=== PATIENT | male | born 1945 | race Caucasian/White ===

== ENCOUNTER → 2018-09-21 07:32 | Outpatient (CLI) | payer MEDICARE, OTHER, SELFPAY ==
[2018-09-21 11:08] LABS: ALB/GLOB Ratio 1.2 RATIO (0.9-2.4); AST(SGOT) 25 U/L (15-37); Alanine Aminotransfer ALT/SGPT 41 U/L (16-61); Albumin, Serum 3.6 g/dL (3.2-5.0); Alkaline Phosphatase 89 U/L (45-117); Anion Gap 8 (5-15); BUN 17 mg/dL (7-18); BUN/Creat Ratio 17.2 RATIO (10-20); Calcium,Total 8.3 mg/dL (8.5-10.1); Chloride 108 mmol/L (98-107); Cholesterol 152 mg/dL (200); Creatinine, Serum 0.99 mg/dL (0.70-1.30); EST Glomerular Filtration Rate 79 mL/min (>60); Est Glom Filt Rate - Afr Amer 96 mL/min (>60); Globulin 3.1 g/dL (2.2-4.2); Glucose 91 mg/dL (74-106); High Density Lipoprotein 45 mg/dL; PSA,Total- Diagnostic 0.99 ng/mL (0.0-4.0); Potassium 4.1 mmol/L (3.5-5.1); Protein, Total 6.7 g/dL (6.4-8.2); Sodium Level 143 mmol/L (136-145); Triglycerides 98 mg/dL; Very Low Density Lipoprotein 20 mg/dL (5-40)
== END ==
PROVIDERS: Family Provider Family Medicine; PCP Family Medicine; Referring Provider Family Medicine; Visit Provider Family Medicine
DX: E78.5 Hyperlipidemia, unspecified (principal); N40.1 Benign prostatic hyperplasia with lower urinary tract symptoms
CPT/HCPCS: 36415; 80053; 80061; 84153

== ENCOUNTER → 2019-09-30 07:29 | Outpatient (CLI) | payer MEDICARE, OTHER, SELFPAY ==
[2019-09-30 10:24] LABS: ALB/GLOB Ratio 1.3 RATIO (0.9-2.4); AST(SGOT) 23 U/L (15-37); Alanine Aminotransfer ALT/SGPT 39 U/L (16-61); Albumin, Serum 3.8 g/dL (3.2-5.0); Alkaline Phosphatase 108 U/L (45-117); Anion Gap 7 (5-15); BUN 19 mg/dL (7-18); BUN/Creat Ratio 19.1 RATIO (10-20); Calcium,Total 8.6 mg/dL (8.5-10.1); Chloride 108 mmol/L (98-107); Cholesterol 157 mg/dL (200); EST Glomerular Filtration Rate 79 mL/min (>60); Est Glom Filt Rate - Afr Amer 95 mL/min (>60); Glucose 91 mg/dL (74-106); High Density Lipoprotein 43 mg/dL; PSA,Total - Annual Screen 0.83 ng/mL (0.00-4.00); Potassium 3.9 mmol/L (3.5-5.1); Protein, Total 6.8 g/dL (6.4-8.2); Sodium Level 141 mmol/L (136-145); Triglycerides 126 mg/dL; Very Low Density Lipoprotein 25 mg/dL (5-40)
== END ==
PROVIDERS: Family Provider Family Medicine; PCP Family Medicine; Referring Provider Family Medicine; Visit Provider Family Medicine
DX: Z00.00 Encounter for general adult medical examination without abnormal findings (principal); R97.20 Elevated prostate specific antigen [PSA]; E78.5 Hyperlipidemia, unspecified
CPT/HCPCS: 36415; 80053; 80061; 84153; G0103

== ENCOUNTER → 2020-10-05 07:27 | Outpatient (CLI) | payer MEDICARE, OTHER, SELFPAY ==
[2020-10-05 10:39] LABS: ALB/GLOB Ratio 1.2 RATIO (0.9-2.4); AST(SGOT) 23 U/L (15-37); Alanine Aminotransfer ALT/SGPT 37 U/L (16-61); Albumin, Serum 3.8 g/dL (3.2-5.0); Alkaline Phosphatase 97 U/L (45-117); Anion Gap 3 (5-15); BUN 22 mg/dL (7-18); BUN/Creat Ratio 17.6 RATIO (10-20); Calcium,Total 8.7 mg/dL (8.5-10.1); Chloride 109 mmol/L (98-107); Cholesterol 141 mg/dL (200); Creatinine, Serum 1.25 mg/dL (0.70-1.30); EST Glomerular Filtration Rate 60 mL/min (>60); Est Glom Filt Rate - Afr Amer 73 mL/min (>60); Globulin 3.2 g/dL (2.2-4.2); Glucose 102 mg/dL (74-106); High Density Lipoprotein 44 mg/dL; PSA,Total - Annual Screen 1.07 ng/mL (0.00-4.00); Potassium 4.1 mmol/L (3.5-5.1); Sodium Level 141 mmol/L (136-145); Triglycerides 143 mg/dL; Very Low Density Lipoprotein 29 mg/dL (5-40)
== END ==
PROVIDERS: PCP Family Medicine; Referring Provider Family Medicine; Visit Provider Family Medicine
DX: Z00.00 Encounter for general adult medical examination without abnormal findings (principal); E78.5 Hyperlipidemia, unspecified; N40.1 Benign prostatic hyperplasia with lower urinary tract symptoms
CPT/HCPCS: 36415; 80053; 80061; 84153; G0103

== ENCOUNTER 2020-12-06 10:29 | Day surgery (SDC) | payer MEDICARE, OTHER, SELFPAY ==
--- NOTE | 2020-11-29 08:52 | EKG12_ITS ---
Test Reason : PREOP Blood Pressure : / mmHG Vent. Rate : 076 BPM Atrial Rate : 076 BPM P-R Int : 158 ms QRS Dur : 128 ms QT Int : 382 ms P-R-T Axes : 014 -32 084 degrees QTc Int : 429 ms Normal sinus rhythm Left axis deviation Left bundle branch block Abnormal ECG Confirmed by MAGGI CANDELARIA, JAIMIE ([id number]), mapping editor GUZMAN ALEXANDER ([id number]) on 11/29/2020 12:59:27 PM Referred By: Gustavo Dhillon Confirmed By:JAIMIE TAY MD
[2020-11-29 09:30] LABS: Hematocrit 44.8 % (40-54); Hemoglobin 14.8 g/dL (13.0-16.5); Mean Corpuscular Hgb 30.8 pg (27.0-32.0); Mean Corpuscular Volume 93.3 fL (80-94); Mean Platelet Vol. 9.6 fl (6.2-12.0); Platelet Count 239 K/mm3 (150-450); RBC Distribution Width CV 13.3 % (11.6-14.6); RBC Distribution Width SD 45.4 fl (35.1-43.9)
[2020-12-06] VITALS (11 sets, daily range): BP systolic 111–149; BP diastolic 65–81; PULSE 68–90; RESP 16–18; TEMP 36.1–37.3; O2SAT 94–100; BMI 26.1
--- NOTE | 2020-12-06 | PROS_PTH ---
PATIENT: RAIMUNDO HUANG LOC: [facility] [place] U#:[id number] AGE/SX: 75/M ROOM: RE12/06/[address]: Dr. Gustavo Dhillon MD : 1945 BED: DIS: 12/07/2020 SPEC #: [id number] RECD: 12/06/20 14:00 STATUS: FRANK LEIJA #: [id number] BILLIE: 12/06/20 00:[address]: Gustavo Dhillon DEPT: SURGICAL PATHOLOGY RECD BY: Ibrahima Ward ENTERED: 12/07/20 07:42 SP TYPE: TURP OTHR DR: Dr. Saad Pabon MD Tissues: Prostate, NOS Procedures: Surgery Specimen Level IV HEADER OPERATION: Cysto, TUR prostate, Olympus PRE-OP DIAGNOSIS: BPH, urgency of urination, nocturia TISSUE SUBMITTED: Prostate pieces MICROSCOPIC DIAGNOSIS Prostate chips, TUR: Benign prostatic hyperplasia, glandular and stromal type. Focal mild chronic inflammation. SJ:mouna 12/08/2020 MICROSCOPIC DESCRIPTION Slides are reviewed. GROSS DESCRIPTION Received is one container labeled with the patient's name and designated prostate tissue. The specimen consists of multiple irregular fragments of pink-servin, rubbery, soft tissue that in aggregate weigh 10 gm and measure in aggregate 6 x 6 x 0.7 cm. The entire specimen is submitted in six cassettes. / AM:mouna 12/07/2020 TC:5 CPT: 63953
[2020-12-06] MEDS: Lactated Ringers 1,000 ML 100 ML IV (11:06)
--- NOTE | 2020-12-06 12:57 | PCM.HP.STD ---
Problem List (1) BPH with obstruction/lower urinary tract symptoms Status: Acute History of Present Illness Date of Admission: 12/06/20 Chief Complaint: BPH with obstruction The patient is a 75 year old male with BPH and obstruction plan to proceed the transurethral section of the prostate Past Medical History Allergies No Known Allergies Allergy (Verified 11/28/20 12:35) Home Medications: Ambulatory Orders Medication Instructions Recorded Atorvastatin Calcium 20 mg PO QHS 11/28/20 Cholecalciferol (Vitamin D3) 2,000 unit PO DAILY 11/28/20 [Vitamin D3] Elderberry Fruit and Flower [Black 1 ea PO DAILY 11/28/20 Elderberry 575 mg Cap] Finasteride [Proscar] 5 mg PO DAILY 11/28/20 Multivitamin 1 ea PO DAILY 11/28/20 Tamsulosin HCl [Flomax] 0.4 mg PO DAILY 11/28/20 Surgical History: no surgical history Smoking Status: Former smoker Tobacco Use: Non-smoker Review of Systems Constitutional: Denies: Chills, Fever, Weight Change HEENT: Denies: Head Aches, Sinus Congestion, Sinus Drainage Cardiovascular: Denies: Chest Pain, Palpitations Respiratory: Denies: Cough, Shortness of breath at rest, Sputum production Gastrointestinal: Denies: Abdominal Pain, Nausea, Vomiting Genitourinary: Denies: Dysuria Musculoskeletal: Denies: Joint Pain, Joint Tenderness Skin: Denies: Rash, Wounds Neurological: Denies: Numbness, Tingling, Focal weakness Psychiatric: Denies: Anxiety, Depression, Homicidal Ideations, Suicidal Ideations Hematologic/ Lymphatic: Denies: Easy Bruising, Easy Bleeding VTE Information - Inpt Only VTE Present on Admission: No - Physical Exam Vitals/I&O's: Vital Signs Temp Pulse Resp BP Pulse Ox 97.8 F 90 16 128/65 H 99 12/06/20 10:59 12/06/20 10:59 12/06/20 10:59 12/06/20 10:59 12/06/20 10:59 Oxygen Delivery Method Room Air Weight: 80.3 kg Body Mass Index (BMI) 26.1 General: Alert, Oriented x3, Cooperative HEENT: Atraumatic, PERRLA, EOMI, Normocephalic Neck: Supple, No JVD, Negative Carotid Bruits Lungs: Clear to auscultation, Normal air movement Cardiovascular: Regular rate, No murmurs Abdomen: Bowel Sounds Present, Soft, Non Tender Extremities: No edema, Capillary Refill Less than 3 Seconds Skin: No rashes, No breakdown Musculoskeletal: No Tenderness to Palpation of Joints or Extremities Neurological: Cranial nerves II-XII grossly intact Psych/Mental Status: Normal Affect, Appropriate Microbiology Past 72 Hours 12/05/20 09:10 Interface Orders SARS-CoV-2 Antigen (Rapid) - Final Current Medications Cefazolin Sodium 2 gm/ Sodium (Chloride) 110 mls @ 150 mls/hr IV PREOP ONE Stop: 12/06/20 13:08 Lactated Ringer's () 1,000 mls @ 100 mls/hr IV .Q10H JOSETTE Last Admin: 12/06/20 11:06 Dose: 100 mls/hr Documented by: Assessment/Plan All Active Problems BPH with obstruction/lower urinary tract symptoms (Acute) Plan to proceed with transurethral section of the prostate
--- NOTE | 2020-12-06 13:02 | DCINST_ITS ---
Discharge Diet: Light diet - advance as tolerated Discharge Activity: May Not Drive, May not drive while taking narcotic pain medications. Call your doctor if your incision/area has: Continuous Slow Oozing, Sudden Increased Bleeding, Increased Pain/ Swelling, Increased Redness, Foul Smelling Discharge, Swelling at the incision site Suture Line Care: Avoid Pulling/Pushing, Avoid Pinching/Bending Instructions: Transurethral Resection of the Prostate (TURP): Home Recovery Allergies/Adverse Reactions: Allergies No Known Allergies Allergy (Verified 11/28/20 12:35) Medications to take at Discharge Atorvastatin Calcium 20 mg PO QHS 11/28/20 Cholecalciferol (Vitamin D3) [Vitamin D3] 2,000 unit PO DAILY 11/28/20 Elderberry Fruit and Flower [Black Elderberry 575 mg Cap] 1 ea PO DAILY 11/28/20 Finasteride [Proscar] 5 mg PO DAILY 11/28/20 Multivitamin 1 ea PO DAILY 11/28/20 Tamsulosin HCl [Flomax] 0.4 mg PO DAILY 11/28/20 Ciprofloxacin [Cipro] 500 mg PO BID #14 tab 12/06/20 Docusate Sodium [Colace] 100 mg PO BID #20 cap 12/06/20 Hydrocodone/Acetaminophen [Marion 5-325 Tablet] 1 ea PO Q4H PRN PRN 10 Days #14 tab 12/06/20 The following prescriptions were given: Ciprofloxacin [Cipro] 500 mg PO BID #14 tab Transmission Status: Pending to [id number] Docusate Sodium [Colace] 100 mg PO BID #20 cap Transmission Status: Pending to [id number] Hydrocodone/Acetaminophen [Marion 5-325 Tablet] 1 ea PO Q4H PRN PRN 10 Days #14 tab PRN Reason: Pain 1-10 Or Fever Prescription Printed Primary Care Physician: Edil Pabon MD [Primary Care Provider] - Test Results: Test results from this visit will be discussed in further detail at your follow- up appointment, if applicable. Please Follow Up With: Gustavo Dhillon MD When: in 2 weeks, please call to make an appointment. Proposed Discharge Date: 12/07/20
[2020-12-06] MEDS: Cefazolin 2 GM in 0.9% Normal Saline 100 ML IV (13:18)
--- NOTE | 2020-12-06 13:42 | PCM.OPRPT ---
Problem List (1) BPH with obstruction/lower urinary tract symptoms Status: Acute Report of Operation Date of Procedure: 12/06/20 Pre-Operative Diagnosis: BPH with obstruction Post-Operative Diagnosis: Same Surgery/Procedure Performed:: Transurethral section of prostate Description of Surgical Findings:: In the preoperative setting I discussed with the patient how the surgery would be done with expect afterwards. We discussed how a prostate resection is done and we discussed the risk of the surgery including, bleeding, infection, retrograde ejaculation, changes with ejaculation or intercourse,. We discussed the possibility that the resection of the prostate may not alleviate his urinary symptoms. We discussed the small risk of developing scar tissue along the urethral channel and strictures. We also discussed the chance of the prostate could grow back and he may need further surgery or treatment in the future for prostate problems. Patient was taken back to the operating room, timeout procedure was performed, he was identified and marked and placed on the operating room table. He underwent general anesthesia. He was placed in dorsolithotomy position. Penis and testicles were prepped and draped in usual sterile fashion. Went into the bladder using the visual obturator with a resectoscope. Once inside the bladder identified the right and left ureteral orifice. I then identified the prostate and the anatomy of the prostate. I marked out the area of the sphincter and the verumontanum was identified. I then proceeded with the prostate resection first resected the median lobe. And then resected the right lobe of the prostate. Then to resect the left lobe of the prostate. I then resected the apical tissue of the prostate. Made sure that there was no injury to the sphincter or the verumontanum was still intact. At the end of the resection all the chips were Ellik out of the bladder. I then identified the left and right ureteral orifice and these were confirmed to be in good position and effluxing and not injured. The resectoscope was removed, a 22 [place] catheter was placed into the bladder on continuous irrigation. And the urine was fairly light pink color and draining normally. He was taken back to the PACU in good condition. Type of Anesthesia:: General Drains: 3 way huizar - Admit VTE Documentation VTE Present on Admission: No VTE Mechan Device Prophylaxis: SCD's
[2020-12-06] MEDS: 0.9% Normal Saline 1,000 ML 125 ML IV (16:50)
[2020-12-06] MEDS: Acetaminophen 325 MG Tablet PO (18:44)
[2020-12-06] MEDS: Ibuprofen 600 MG Tablet PO (19:46)
[2020-12-06] MEDS: Atorvastatin Calcium 20 MG Tablet PO (22:15)
[2020-12-06] MEDS: Docusate Sodium 100 MG Capsule PO (22:15)
[2020-12-07 02:00] VITALS: BP 135/74; PULSE 81; RESP 16; TEMP 36.7; O2SAT 93
[2020-12-07] MEDS: 0.9% Normal Saline 1,000 ML 125 ML IV (03:50)
[2020-12-07] MEDS: Pantoprazole Sodium 40 MG Tablet PO (07:58)
[2020-12-07] MEDS: Docusate Sodium 100 MG Capsule PO (07:58)
[2020-12-07] MEDS: Tamsulosin HCl 0.4 MG Capsule PO (07:58)
[2020-12-07 08:00] VITALS: BP 138/78; PULSE 84; RESP 16; TEMP 36.9; O2SAT 97
== END 2020-12-07 10:25 | disposition home or self-care (01) ==
LOC: SDC 10:29 → AC 10:31 → MS3 15:44
PROVIDERS: Anesthesiology; PCP Family Medicine; Referring Provider Urology; Visit Provider Urology
PROC: (CPT 52601; principal; 2020-12-06 12:40)
DX: N40.1 Benign prostatic hyperplasia with lower urinary tract symptoms (principal); N41.1 Chronic prostatitis; N13.8 Other obstructive and reflux uropathy; R39.15 Urgency of urination; R35.1 Nocturia; N32.89 Other specified disorders of bladder; Z20.828 Contact with and (suspected) exposure to other viral communicable diseases; E78.00 Pure hypercholesterolemia, unspecified; Z79.899 Other long term (current) drug therapy; Z87.891 Personal history of nicotine dependence
CPT/HCPCS: 52601; 36415; 85027; 87426; 88305; 93005; C9803; J7030; J7120; J2405

== ENCOUNTER → 2020-12-18 10:48 | Outpatient (CLI) | payer MEDICARE, OTHER, SELFPAY ==
[2020-12-06 16:01] VITALS: BMI 26.1
== END ==
PROVIDERS: PCP Family Medicine; Referring Provider Nurse Practitioner Adult Health; Visit Provider Nurse Practitioner Adult Health
DX: R30.0 Dysuria (principal)
CPT/HCPCS: 87086; 87088

== ENCOUNTER → 2021-09-24 07:43 | Outpatient (CLI) | payer MEDICARE, OTHER, SELFPAY ==
[2021-09-24 10:39] LABS: ALB/GLOB Ratio 1.1 RATIO (0.9-2.4); AST(SGOT) 24 U/L (15-37); Alanine Aminotransfer ALT/SGPT 36 U/L (16-61); Albumin, Serum 3.5 g/dL (3.2-5.0); Alkaline Phosphatase 108 U/L (45-117); Anion Gap 6 (5-15); BUN 23 mg/dL (7-18); BUN/Creat Ratio 22.1 RATIO (10-20); Calcium,Total 8.7 mg/dL (8.5-10.1); Chloride 107 mmol/L (98-107); Cholesterol 160 mg/dL (200); Creatinine, Serum 1.04 mg/dL (0.70-1.30); EST Glomerular Filtration Rate 74 mL/min (>60); Est Glom Filt Rate - Afr Amer 90 mL/min (>60); Globulin 3.2 g/dL (2.2-4.2); Glucose 96 mg/dL (74-106); High Density Lipoprotein 42 mg/dL; Potassium 4.2 mmol/L (3.5-5.1); Protein, Total 6.7 g/dL (6.4-8.2); Sodium Level 141 mmol/L (136-145); Triglycerides 177 mg/dL; Very Low Density Lipoprotein 35 mg/dL (5-40)
== END ==
PROVIDERS: PCP Family Medicine; Referring Provider Family Medicine; Visit Provider Family Medicine
DX: E78.5 Hyperlipidemia, unspecified (principal)
CPT/HCPCS: 36415; 80053; 80061

== ENCOUNTER → 2021-10-08 07:48 | Outpatient (CLI) | payer MEDICARE, OTHER, SELFPAY ==
[2021-10-08 10:12] LABS: PSA,Total - Annual Screen 1.56 ng/mL (0.00-4.00)
== END ==
PROVIDERS: PCP Family Medicine; Referring Provider Family Medicine; Visit Provider Family Medicine
DX: Z12.5 Encounter for screening for malignant neoplasm of prostate (principal); E78.5 Hyperlipidemia, unspecified
CPT/HCPCS: 36415; 84153; G0103

== ENCOUNTER → 2022-09-27 | Outpatient (CLI) | payer MEDICARE, OTHER, SELFPAY ==
[2022-09-27 10:06] LABS: ALB/GLOB Ratio 1.1 RATIO (0.9-2.4); AST(SGOT) 18 U/L (15-37); Alanine Aminotransfer ALT/SGPT 34 U/L (16-61); Albumin, Serum 3.6 g/dL (3.2-5.0); Alkaline Phosphatase 105 U/L (45-117); Anion Gap 6 (5-15); BUN 19 mg/dL (7-18); BUN/Creat Ratio 17.4 RATIO (10-20); CPK Total, Creatine Kinase 84 U/L (39-308); Calcium,Total 8.9 mg/dL (8.5-10.1); Chloride 108 mmol/L (98-107); Cholesterol 133 mg/dL (200); Creatinine, Serum 1.09 mg/dL (0.70-1.30); EST Glomerular Filtration Rate 70 mL/min (>60); Est Glom Filt Rate - Afr Amer 85 mL/min (>60); Globulin 3.2 g/dL (2.2-4.2); Glucose 98 mg/dL (74-106); High Density Lipoprotein 36 mg/dL; PSA,Total- Diagnostic 5.75 ng/mL (0.0-4.0); Potassium 4.2 mmol/L (3.5-5.1); Protein, Total 6.8 g/dL (6.4-8.2); Sodium Level 140 mmol/L (136-145); Triglycerides 155 mg/dL; Very Low Density Lipoprotein 31 mg/dL (5-40)
== END | disposition home or self-care (01) ==
LOC: MTLAB 08:06
PROVIDERS: PCP Family Medicine; Referring Provider Family Medicine; Visit Provider Family Medicine
DX: E78.5 Hyperlipidemia, unspecified (principal)
CPT/HCPCS: 36415; 80053; 80061; 82550; 84153

== ENCOUNTER → 2023-04-04 | Outpatient (CLI) | payer MEDICARE, OTHER, SELFPAY ==
[2023-04-04 10:34] LABS: Cholesterol 151 mg/dL (200); High Density Lipoprotein 41 mg/dL; Triglycerides 108 mg/dL; Very Low Density Lipoprotein 22 mg/dL (5-40)
== END | disposition home or self-care (01) ==
LOC: MTLAB 08:11
PROVIDERS: PCP Family Medicine; Referring Provider Family Medicine; Visit Provider Family Medicine
DX: E78.5 Hyperlipidemia, unspecified (principal)
CPT/HCPCS: 36415; 80061

== ENCOUNTER → 2023-04-15 | Outpatient (CLI) | payer MEDICARE, OTHER, SELFPAY ==
[2023-04-15 12:34] LABS: Erythrocyte Sedimentation Rate 3 mm/hr (0-20)
[2023-04-15 12:37] LABS: Hematocrit 44.2 % (40-54); Hemoglobin 14.5 g/dL (13.0-16.5); Mean Corp Hgb Conc 32.8 g/dL (32-36); Mean Corpuscular Hgb 30.5 pg (27.0-32.0); Mean Corpuscular Volume 92.9 fL (80-94); Mean Platelet Vol. 9.9 fl (6.2-12.0); Platelet Count 251 K/mm3 (150-450); RBC Distribution Width SD 44.3 fl (35.1-43.9); Red Blood Count 4.76 M/mm3 (4.6-6.2); White Blood Count 7.8 K/mm3 (4.4-11.0)
[2023-04-15 13:20] LABS: ALB/GLOB Ratio 1.3 RATIO (0.9-2.4); AST(SGOT) 22 U/L (15-37); Alanine Aminotransfer ALT/SGPT 30 U/L (16-61); Albumin, Serum 3.8 g/dL (3.2-5.0); Alkaline Phosphatase 91 U/L (45-117); Anion Gap 6 (5-15); BUN 21 mg/dL (7-18); BUN/Creat Ratio 22.5 RATIO (10-20); Chloride 109 mmol/L (98-107); Creatinine, Serum 0.93 mg/dL (0.70-1.30); EST Glomerular Filtration Rate 84 mL/min (>60); Est Glom Filt Rate - Afr Amer 102 mL/min (>60); Glucose 86 mg/dL (74-106); Potassium 4.5 mmol/L (3.5-5.1); Protein, Total 6.8 g/dL (6.4-8.2); Sodium Level 141 mmol/L (136-145)
[2023-04-15 13:58] LABS: Vitamin B12 634 pg/mL (211-911); Vitamin D,25 Hydroxy 59.7 ng/mL
== END | disposition home or self-care (01) ==
PROVIDERS: PCP Family Medicine; Visit Provider Family Medicine
DX: R45.86 Emotional lability (principal); R97.20 Elevated prostate specific antigen [PSA]
CPT/HCPCS: 36415; 80053; 82306; 82607; 84443; 85027; 85652

== ENCOUNTER → 2023-05-07 | Outpatient (CLI) | payer MEDICARE, OTHER, SELFPAY ==
--- NOTE | 2023-05-07 13:16 | MRI_ITS ---
EXAM: MR HEAD WITHOUT INTRAVENOUS CONTRAST CLINICAL INDICATION: memory change, paranoia TECHNIQUE: Multiplanar and multisequence MR images of the brain were obtained without intravenous contrast. COMPARISON: No relevant prior studies available. FINDINGS: BRAIN AND EXTRA-AXIAL SPACES: No restricted diffusion. No evidence of acute CVA. Moderate cerebral volume loss. Mild hydrocephalus ex vacuo. Minimal deep periventricular signal changes near the occipital horns on inversion recovery images. No intra- or extra-axial hemorrhage. No evidence of acute infarct. No intracranial mass or mass effect. There is preservation of the diaz/white matter interface. Posterior fossa structures are unremarkable. Basal cisterns are patent. SELLA: Unremarkable. Normal sella turcica, pituitary gland, infundibular stalk, optic chiasm and hypothalamus. AUDITORY SYSTEM: Unremarkable. The internal auditory canals are patent. BONES/JOINTS: Unremarkable. No discrete lytic or blastic abnormalities. SINUSES: Mucous retention cyst in the left maxillary sinus. Otherwise unremarkable sinuses. MASTOID AIR CELLS: Unremarkable as visualized. Clear. ORBITS: Unremarkable as visualized. Both globes, extraocular muscles, optic nerves and retrobulbar fat appear unremarkable. VASCULATURE: The major proximal [place] vessels appear unremarkable. The dural venous sinus signal voids are unremarkable. MRI/Brain without Contrast IMPRESSION: Moderate volume loss, subjectively advanced for age. No acute intracranial abnormality. Electronically Signed: Emily Ortiz MD at 8:35 EDT ,
== END | disposition home or self-care (01) ==
LOC: MRI 13:04
PROVIDERS: PCP Family Medicine; Referring Provider Family Medicine; Visit Provider Family Medicine
DX: G31.84 Mild cognitive impairment of uncertain or unknown etiology (principal)
CPT/HCPCS: 70551

== ENCOUNTER → 2024-04-27 | Outpatient (CLI) | payer MEDICARE, OTHER, SELFPAY ==
[2024-04-27 11:41] LABS: PSA,Total - Annual Screen 2.16 ng/mL (0.00-4.00)
== END | disposition home or self-care (01) ==
LOC: LAB 09:37
PROVIDERS: PCP Family Medicine; Referring Provider Urology; Visit Provider Urology
DX: Z12.5 Encounter for screening for malignant neoplasm of prostate (principal)
CPT/HCPCS: 36415; 84153; G0103

== ENCOUNTER → 2024-12-07 | Outpatient (CLI) | payer MEDICARE, OTHER, SELFPAY ==
[2024-12-07 13:52] LABS: Bacteria 0 SEEN /hpf (None Seen)
[2024-12-07 16:03] LABS: Color, Urine Straw (Yellow); Glucose, Dipstick Normal (Normal); Ketone-Dipstick 5 mg/dl (Negative); Leukocyte Esterase-Dipstick 25 /ul (Negative); Nitrite-Dipstick Negative (Negative); Occult Blood-Urine Negative /ul (Negative); Protein-Dipstick 15 mg/dl (Negative); Urine Bilirubin Dipstick Negative (Negative); Urine Clarity Clear (Clear); Urine Urobilinogen Normal (Normal)
[2024-12-07 16:52] LABS: Squamous Epithelial Cells - UA 0-5 SEEN /hpf (0-5)
[2024-12-07 16:53] LABS: Mucous, Urine 2+ /hpf (<or=2+); Red Blood Cells-Urine 0-5 SEEN /hpf (0-5); White Blood Cells 5-10 SEEN /hpf (0-5)
== END | disposition home or self-care (01) ==
LOC: LABSPEC 13:51
PROVIDERS: PCP Family Medicine; Referring Provider Family Medicine; Visit Provider Family Medicine
DX: R35.0 Frequency of micturition (principal)
CPT/HCPCS: 81001; 87086; 87088

== ENCOUNTER 2025-01-08 21:02 | Emergency (ER) | payer MEDICARE, OTHER, SELFPAY ==
[2025-01-08 21:04] VITALS: BP 125/78; PULSE 96; RESP 15; TEMP 36.2; O2SAT 97
--- NOTE | 2025-01-08 21:45 | EKG12_ITS ---
Test Reason : DYSRHYTHMIA Blood Pressure : */* mmHG Vent. Rate : 84 BPM Atrial Rate : 84 BPM P-R Int : 156 ms QRS Dur : 128 ms QT Int : 380 ms P-R-T Axes : 39 -15 116 degrees QTcB Int : 449 ms Normal sinus rhythm Left bundle branch block Abnormal ECG Confirmed by JAIMIE TAY MD ([id number]), field map editor VIOLETA MOMIN ([id number]) on 01/10/2025 6:34:12 AM Referred By: LEATHA Confirmed By: JAIMIE TAY MD
--- NOTE | 2025-01-08 21:55 | EX.ED.DYSGE1 ---
HPI History of Present Illness Chief Complaint: General Illness Detail of Chief Complaint: Near syncope/syncope Informant: patient and spouse/S.O. Onset/Context/Timing Onset: Hours Context: Sudden Onset Timing: Intermittent Quality: Patient was pale, diaphoretic and partially off the commode against the wal Location: At home Current Severity: Gone Maximum Severity: Moderate Worsened by: Uncertain since patient has dementia Relieved by: Not applicable Associated Symptoms Associated Symptoms: Patient was leaning to the left off the commode was diaphoretic, pale and d Narrative Narrative: Patient was put to bed by his at 1830. She heard commotion. She went to go check on him. He was leaning off the commode against the wall. He was pale diaphoretic not appropriate. He was breathing but his breathing was abnormal. He did not have a bowel movement. He did have difficulty urinating. states she has had difficulty urinating for the past month. There is no other symptoms. Prior similar symptoms: No Recent Illness/Hospitalization: No PFSH [facility] Home Medications ?Medication ?Instructions ?Recorded ?Last Taken ?Type atorvastatin 20 mg tablet 20 mg PO QHS 11/28/20 Unknown History cholecalciferol (vitamin D3) 50 2,000 unit PO DAILY 11/28/20 Unknown History mcg (2,000 unit) capsule elderberry fruit 460 mg-elderberry 1 ea PO DAILY 11/28/20 Unknown History flower 115 mg capsule finasteride 5 mg tablet 5 mg PO DAILY 11/28/20 Unknown History multivitamin 1 ea PO DAILY 11/28/20 Unknown History tamsulosin 0.4 mg capsule 0.4 mg PO DAILY 11/28/20 Unknown History ciprofloxacin HCl 500 mg tablet 500 mg PO BID #14 tabs 12/06/20 Unknown Rx docusate sodium 100 mg capsule 100 mg PO BID #20 caps 12/06/20 Unknown Rx Allergy/AdvReac Type Severity Reaction Status Date / Time No Known Allergies Allergy Verified 01/08/25 21:04 Social History (Updated 01/08/25 @ 21:[address] Andrea Moreno MD) household members: spouse Smoking Status: Former smoker ROS ROS ED Review of Systems ROS Unobtainable: due to mental status Cardiovascular Cardiovascular: Reports chest pain and palpitations Gastrointestinal Gastrointestinal: Denies abdominal pain, diarrhea or vomiting EXAM Physical Exam Const Vital Signs: 01/08/25 21:04 01/08/25 22:03 Temperature 97.2 F L Temperature Source Temporal Pulse Rate 96 Respiratory Rate 15 Respiratory Effort Normal Non-Labored Respiratory Pattern Normal Blood Pressure 125/78 H Blood Pressure Mean 93 Pulse Ox 97 Oxygen Delivery Method Room Air Positive well nourished and well developed General Appearance ED: well developed and NAD HEENT Reports moist mucous membranes Eyes PERRL and EOMs intact bilaterally General Eye ED: Negative for pale conjunctiva or scleral icterus Chest Wall inspection of chest normal and palpation of chest normal Resp normal respiratory effort and clear to auscultation bilaterally Cardio regular rate, regular rhythm, S1 normal heart sound, S2 normal heart sound and no murmurs GI normal to inspection, nondistended, normoactive bowel sounds, non-tender, non-distended and hepatosplenomegaly Extremity normal to inspection General Extremety ED: Negative for edema General Extremity: Negative for edema Neuro No oriented x3, CN's II-XII intact bilaterally and no sensory deficits noted Sensorium / Orientation: alert Motor Exam: strength 5/5 throughout Psych mental status grossly normal Skin no rashes or lesions noted, no wounds and skin turgor normal MDM MDM MDM Narrative Medical decision making narrative: EKG was obtained to assess for acute ischemia. Differential is vasovagal near syncope rule out cardiac ischemia. EKG will be obtained. EKG does not show any ischemia be discharged to home. The is the primary informant. History & Record Review Additional record(s) reviewed:: Prior outpatient record (Records from outside facility December 2020 for obstruction lower urinary tract system/frequency of micturition. Also history and physical by Dr. Kessler for BPH with obstruction of lower tract.) EKG Initial EKG: Attestation: I personally reviewed and interpreted this EKG as follows: Interpretation: Sinus Rhythm (Rate is 84. There is left bundle branch block. WA interval is 156 ms. QRS duration 128 ms. QT duration 180 ms. There is no acute ischemic changes.) Discharge Plan Triage Chief Complaint: General Illness ED Provider: Andrea Moreno Dx/Rx/DC Orders Clinical Impression: Vasovagal near syncope, BPH with obstruction/lower urinary tract symptoms, Dementia Instructions: ED Near-Fainting- Vagal Reaction Prescriptions: No Action multivitamin 1 EACH tablet 1 ea PO DAILY atorvastatin 20 MG tablet 20 mg PO QHS tamsulosin 0.4 MG capsule 0.4 mg PO DAILY finasteride 5 MG tablet 5 mg PO DAILY cholecalciferol (vitamin D3) 2,000 UNIT capsule 2,000 unit PO DAILY elderberry fruit and flower 1 EACH capsule 1 ea PO DAILY ciprofloxacin HCl 500 MG tablet 500 mg PO BID Qty: 14 0RF docusate sodium 100 MG capsule 100 mg PO BID Qty: 20 0RF Primary Care Provider: Saad Pabon Referrals: Saad Pabon MD [Primary Care Provider] - As Needed Print Language: Japanese Disposition Disposition: Home, Self Care
[2025-01-08 22:01] VITALS: BMI 22.4
[2025-01-08 22:40] VITALS: BP 132/79; PULSE 88; RESP 18; TEMP 37.1; O2SAT 93
== END 2025-01-08 22:40 | disposition home or self-care (01) ==
LOC: ED 22:16
PROVIDERS: Emergency Provider Emergency Medicine; PCP Family Medicine; Visit Provider Emergency Medicine
DX: R55 Syncope and collapse (principal); F03.90 Unspecified dementia, unspecified severity, without behavioral disturbance, psychotic disturbance, mood disturbance, and anxiety; N40.1 Benign prostatic hyperplasia with lower urinary tract symptoms; N13.8 Other obstructive and reflux uropathy; Z87.891 Personal history of nicotine dependence
CPT/HCPCS: 93005; 99285

== ENCOUNTER → 2025-03-08 | Outpatient (REF) | payer SELFPAY ==
[2025-03-08 08:38] LABS: Hematocrit 43.7 % (40-54); Hemoglobin 14.6 g/dL (13.0-16.5); Mean Corp Hgb Conc 33.4 g/dL (32-36); Mean Corpuscular Hgb 30.5 pg (27.0-32.0); Mean Corpuscular Volume 91.2 fL (80-94); Mean Platelet Vol. 9.3 fl (6.2-12.0); Platelet Count 211 K/mm3 (150-450); RBC Distribution Width CV 13.2 % (11.6-14.6); RBC Distribution Width SD 44.5 fl (35.1-43.9); Red Blood Count 4.79 M/mm3 (4.6-6.2); White Blood Count 7.8 K/mm3 (4.4-11.0)
[2025-03-08 08:50] LABS: Hemoglobin A1c 5.4 % (<=5.6)
[2025-03-08 09:06] LABS: ALB/GLOB Ratio 1.6 RATIO (0.9-2.4); AST(SGOT) 27 U/L (<=37); Alanine Aminotransfer ALT/SGPT 15 U/L (<=46); Albumin, Serum 3.8 g/dL (3.4-4.8); Alkaline Phosphatase 80 U/L (40-129); Anion Gap 11 (5-15); BUN 14 mg/dL (4-19); BUN/Creat Ratio 18.5 RATIO (10-20); Calcium,Total 8.8 mg/dL (7.6-11.0); Carbon Dioxide 25.2 mmol/L (21.0-32.0); Chloride 105 mmol/L (98-108); Cholesterol 171 mg/dL (<=200); Creatinine, Serum 0.76 mg/dL (0.70-1.20); EST Glomerular Filtration Rate 92 (>60); Globulin 2.4 g/dL (2.2-4.2); Glucose 82 mg/dL (70-99); High Density Lipoprotein 44 mg/dL; Low Density Lipoprotein Calc. 98 mg/dL; Potassium 4.2 mmol/L (3.3-5.1); Protein, Total 6.2 g/dL (5.9-8.4); Sodium Level 141 mmol/L (133-145); Total Bilirubin 0.53 mg/dL (0.00-1.30); Triglycerides 149 mg/dL; Very Low Density Lipoprotein 30 mg/dL (5-40); Vitamin D,25 Hydroxy 57.6 ng/mL (30-100); cholesterol:hdl ratio screen 3.92
== END ==
LOC: OLS.BROOKB 05:00
PROVIDERS: PCP Family Medicine; Visit Provider Family Medicine
DX: N39.0 Urinary tract infection, site not specified (principal)
CPT/HCPCS: 36415; 80053; 80061; 82306; 83036; 84439; 84443; 85027

== ENCOUNTER → 2025-03-19 | Outpatient (REF) | payer MEDICARE, OTHER, SELFPAY ==
[2025-03-21 09:22] LABS: Red Blood Cells-Urine 0 SEEN /hpf (0-5)
[2025-03-21 10:28] LABS: Color, Urine Yellow (Yellow); Glucose, Dipstick Normal (Normal); Ketone-Dipstick 5 mg/dl (Negative); Leukocyte Esterase-Dipstick 100 /ul (Negative); Nitrite-Dipstick Negative (Negative); Occult Blood-Urine Negative /ul (Negative); Protein-Dipstick 15 mg/dl (Negative); Specific Gravity, Urine 1.015 (1.002-1.030); Urine Bilirubin Dipstick Negative (Negative); Urine Clarity Clear (Clear); Urine Urobilinogen Normal (Normal); Urine pH 6.5 (5.0 - 8.0)
[2025-03-21 10:36] LABS: Squamous Epithelial Cells - UA 0-5 SEEN /hpf (0-5); White Blood Cells 0-5 SEEN /hpf (0-5)
[2025-03-21 10:37] LABS: Bacteria 1+ /hpf (None Seen); Calcium Oxalate Crystals Ur 1+ /hpf (<or=2+); Mucous, Urine 1+ /hpf (<or=2+)
== END ==
LOC: OLS.BROOKB 13:00
PROVIDERS: PCP Family Medicine; Referring Provider Family Medicine; Visit Provider Family Medicine
DX: N39.0 Urinary tract infection, site not specified (principal)
CPT/HCPCS: 81001; 87086

== ENCOUNTER → 2025-04-05 | Outpatient (REF) | payer MEDICARE, OTHER, SELFPAY ==
[2025-04-05 09:12] LABS: Valproic Acid (Depakene) Level 42 ug/mL (50-100)
[2025-04-05 09:15] LABS: Anion Gap 9 (5-15); BUN 24 mg/dL (4-19); BUN/Creat Ratio 31.5 RATIO (10-20); Calcium,Total 8.8 mg/dL (7.6-11.0); Chloride 108 mmol/L (98-108); Creatinine, Serum 0.76 mg/dL (0.70-1.20); EST Glomerular Filtration Rate 92 (>60); Glucose 85 mg/dL (70-99); Potassium 4.4 mmol/L (3.3-5.1); Sodium Level 142 mmol/L (133-145)
== END ==
LOC: OLS.BROOKB 05:00
PROVIDERS: PCP Family Medicine
DX: F03.90 Unspecified dementia, unspecified severity, without behavioral disturbance, psychotic disturbance, mood disturbance, and anxiety (principal)
CPT/HCPCS: 36415; 80048; 80164

== ENCOUNTER → 2025-08-02 05:00 | Outpatient (REF) | payer MEDICARE, OTHER, SELFPAY ==
[2025-08-02 10:11] LABS: Anion Gap 11 (5-15); BUN 19 mg/dL (4-19); BUN/Creat Ratio 23.3 RATIO (10-20); Calcium,Total 9.3 mg/dL (7.6-11.0); Carbon Dioxide 25.8 mmol/L (21.0-32.0); Chloride 103 mmol/L (98-108); Glucose 96 mg/dL (70-99); Potassium 4.1 mmol/L (3.3-5.1)
== END ==
LOC: OLS.BROOKB 05:00
PROVIDERS: PCP Family Medicine; Visit Provider Family Medicine
DX: Z79.899 Other long term (current) drug therapy (principal)
CPT/HCPCS: 36415; 80048